=== PATIENT | female | born 1990 | race Caucasian/White ===

== ENCOUNTER 2017-03-23 21:06 | Emergency (ER) | payer BC ==
[2017-03-23 21:17] VITALS: PULSE 95; TEMP 98; BMI 25.4
--- NOTE | 2017-03-23 22:11 | PDOC ---
History of Present Illness - General Chief Complaint: Blood Pressure Problem Stated Complaint: MY BLOOD PRESSURE IS HIGH Time Seen by Provider: 03/23/17 21:20 - History of Present Illness Initial Comments: This 26-year-old woman with a history of anxiety and child 3 months ago presents with a few day history of fatigue, intermittent flushing and intermittent mild shortness of breath. She has no history of chest pain/cough; she has had no extremity edema or pain. Patient had taken her blood pressure at home and was concerned because it was in the 140/100 range No recent fever/ chills although she had a mild sore throat last week which resolved spontaneously a few days ago. Patient had onset of first menstruation since giving approximately 4 days ago. She was prescribed Effexor by her therapist last week; she took half a tablet today (first time she had taken any since being prescribed last week). She admits to mild depression currently but denies suicidal ideation. History of gestational hypertension but has not been on any antihypertensives at any time. Past History - Past Medical History Allergies/Adverse Reactions: Allergies Allergy/AdvReac Type Severity Reaction Status Date / Time No Known Allergies Allergy Verified 03/23/17 21:11 Home Medications: Ambulatory Orders Venlafaxine HCl ER [Effexor Xr -] 37.5 mg PO DAILY 03/23/17 Other medical history: ANXIETY - Psycho/Social/Smoking Cessation Hx Anxiety: No Suicidal Ideation: No Smoking History: Never smoked Have you smoked in the past 12 months: No Information on smoking cessation initiated: No Hx Alcohol Use: No Drug/Substance Use Hx: No Substance Use Type: None Review of Systems - Review of Systems Able to Perform ROS?: Yes Comments:: 12 point review of systems is negative except for what is noted in the history of present illness *Physical Exam - Vital Signs Last Vital Signs Temp Pulse Resp BP Pulse Ox 98 F 95 H 18 142/101 100 03/23/17 21:13 03/23/17 21:13 03/23/17 21:13 03/23/17 21:13 03/23/17 21:13 - Physical Exam Comments: GENERAL: Adult female, alert and oriented 2, appearing mildly anxious but in no acute distress HEAD: Normal with no signs of trauma. EYES: PERRLA, EOMI, sclera anicteric, conjunctiva clear. ENT: Ears normal, nares patent, oropharynx clear without exudates. Dry mucous membranes. NECK: Normal range of motion, supple without lymphadenopathy, JVD, or masses. LUNGS: Breath sounds equal, clear to auscultation bilaterally. No wheezes, and no crackles. HEART:Regular rate and rhythm, normal S1 and S2 without murmur, rub or gallop. ABDOMEN:.normal bowel sounds No guarding,tenderness or rebound.No masses No distention. EXTREMITIES: Normal range of motion, no edema. No clubbing or cyanosis. No erythema, or tenderness. NEUROLOGICAL: Cranial nerves II through XII grossly intact. Normal speech. No focal neurological deficits. MUSCULOSKELETAL: Back non-tender to palpation, no CVA tenderness SKIN: Warm, Dry, normal turgor, no rashes or lesions noted. 12-lead electrocardiogram is performed and interpreted by me: This shows normal sinus rhythm with sinus arrhythmia at 79 bpm; intervals, axis and wave forms are all normal Medical Decision Making - Medical Decision Making This 26-year-old woman, 3 months presents with concerns regarding her blood pressure reading and a few day history of fatigue with intermittent flushing and shortness of breath. No history of other respiratory issues or chest pain. Vital signs show no tachypnea or respiratory distress. Pulse oximetry on room air is 100%. Physical exam is otherwise unremarkable. EKG as noted above is normal. Results of exam and EKG discussed with the patient. Patient has been advised to take the effexor medication as prescribed by her therapist. Meanwhile, she should follow-up with her general doctor within the next few days. She should return to the ER if she has any persistent shortness of breath or develops chest pain *DC/Admit/Observation/Transfer Diagnosis at time of Disposition: depression - Discharge Dispostion Disposition: HOME Condition at time of disposition: Stable - Patient Instructions Printed Discharge Instructions: DI for Depression Additional Instructions: Continue Effexor daily as discussed Drink plenty of fluids; rest Return or see your general doctor if you have persistent shortness of breath Return if you have severe cough/high fever/chest pain Follow-up with diabetes clinical manager as scheduled
[2017-03-23 23:01] VITALS: BP 130/94
--- NOTE | 2017-03-24 09:15 | EKG ---
Test Reason : Blood Pressure : / mmHG Vent. Rate : 079 BPM Atrial Rate : 079 BPM P-R Int : 160 ms QRS Dur : 090 ms QT Int : 394 ms P-R-T Axes : 057 082 010 degrees QTc Int : 451 ms SINUS RHYTHM WITH SINUS ARRHYTHMIA NONSPECIFIC ST AND T WAVE ABNORMALITY RSR' OR QR PATTERN IN V1 SUGGESTS RIGHT VENTRICULAR CONDUCTION DELAY NO PREVIOUS ECGS AVAILABLE Confirmed by MEENU INTERIANO MD [id number]) on 03/24/2017 9:15:10 AM Referred By: SIVAN Confirmed By:MEENU INTERIANO MD
== END 2017-03-23 23:10 | disposition home or self-care (01) ==
LOC: FER 21:06
DX: F53 Mental and behavioral disorders associated with the puerperium, not elsewhere classified (principal)
CPT/HCPCS: 93005; 99281-25